=== PATIENT | male | born 1970 | race Hispanic/Latino ===

== ENCOUNTER 2016-09-28 14:54 | Emergency (ER) | payer OTHER ==
[~2016-09-28] VITALS: Ht 180.3 cm; Wt 124.7 kg
[~2016-09-28 14:54] MED LIST: DENTA 5000 PLUS1.1% TOP; FLEXERIL10 MG PO; MOBIC15 MG PO; RANITIDINE HCL300 MG PO
[2016-09-28 15:27] VITALS: BP 124/75
[2016-09-28] MEDS ORDERED: KEFLEX250 M1 PO (17:58)
[2016-09-28] MEDS ORDERED: BACTRIM 400-801 EACH PO (17:58)
--- NOTE | 2016-09-28 17:58 | ED SKIN/ALLERGY COMPLAINT ---
History of Present Illness General Chief Complaint: Skin Rash/ Abcess Stated Complaint: ?ABSCESS ON UPPER RT LEG Source: patient Exam Limitations: no limitations Vital Signs & Intake/Output Vital Signs & Intake/Output Vital Signs Date Time Temp Pulse Resp B/P Pulse O2 O2 Flow FiO2 Ox Delivery Rate 09/28 1527 97.2 76 18 124/75 97 Room Air Room Air Allergies Coded Allergies: NO KNOWN ALLERGIES (09/06/12) Reconcile Medications Cephalexin (Keflex) 250 MG CAPSULE 1 CAP PO 4 TIMES/DAY CELLULITIS CYCLOBENZAPRINE HCL (Flexeril) 10 MG TAB 1 TAB PO TID PRN PAIN Meloxicam (Mobic) 15 MG TAB 1 TAB PO DAILY PRN PAIN Ranitidine Hydrochloride (Ranitidine HCl) 300 MG SGL 1 SGL PO BID GI ( Reported) Sodium Fluoride (Denta 5000 Plus) 1.1% CRE 1 SARAI TOP BID DENTAL (Reported) Sulfamethoxazole/Trimethoprim (Bactrim 400-80 MG Tablet) 400 MG-80 MG TABLET 1 TAB PO BID CELLULITIS Triage Note: TRIAGE: 46 Y/O MALE PRESENTS FOR INGROWN HAIR TO RIGHT GROIN, RIGHT UPPER THIGH. REPORTS ATTEMPTED TO [place] ARE[facility] AT HOME. AFEBRILE IN TRIAGE. Triage Nurses Notes Reviewed? yes Onset: Gradual Duration: constant Timing: recent history Severity: moderate Severity Numbers: 5 HPI: Patient is a 46-year-old male who presents to emergency room with concerns of right upper leg redness and tender mass in which patient states that he tried to squeeze the region and he noticed minimal purulent discharge. Patient denies any fever chills denies any active discharge. Denies any mechanism injury (HARDIK ARREAGA) Past History Travel History Traveled to [place] past 21 day No Medical History Any Pertinent Medical History? see below for history Neurological: NONE EENT: NONE Cardiovascular: PALPITATIONS Respiratory: NONE Gastrointestinal: GERD, irritable bowel syndrome Hepatic: NONE Renal: NONE Musculoskeletal: NONE Psychiatric: NONE Endocrine: NONE Blood Disorders: NONE Cancer(s): NONE Tetanus Vaccine: Surgical History Surgical History: non-contributory Psychosocial History What is your primary language Macanese Tobacco Use: Never used ETOH Use: denies use Illicit Drug Use: denies illicit drug use Family History Hx Contributory? No (HARDIK ARREAGA) Review of Systems Review of Systems Constitutional: Reports: no symptoms. EENTM: Reports: no symptoms. Respiratory: Reports: no symptoms. Cardiovascular: Reports: no symptoms. GI: Reports: no symptoms. Genitourinary: Reports: no symptoms. Musculoskeletal: Reports: no symptoms. Skin: Reports: see HPI, erythema. Neurological/Psychological: Reports: no symptoms. Hematologic/Endocrine: Reports: no symptoms. Immunologic/Allergic: Reports: no symptoms. All Other Systems: Reviewed and Negative (HARDIK ARREAGA) Physical Exam Physical Exam General Appearance: no apparent distress, alert, anxious Skin: intact Skin Problem Location: lower extremities Comments: Well-developed well-nourished person in no acute distress HEENT: Normal EENT exam, extraocular motion intact, no nystagmus. Pupils equally round and reactive to light and accommodation. Nose is atraumatic. External auditory canal and Tympanic membranes clear. Pharynx normal. No swelling or edema. Neck: Supple, no lymphadenopathy, normal range of motion without pain or tenderness Back: Nontender, no CVA tenderness. Cardiovascular: Regular rate and rhythms no murmurs rubs or gallops, normal JVP Respiratory: Chest nontender. No respiratory distress.breath sounds clear to auscultation bilaterally Abdomen: Soft, nontender nondistended, no appreciable organomegaly. Normal bowel sounds. No ascites Extremity: No edema, no calf tenderness to palpation, normal and equal pulses. Neuro: Alert oriented x3, motor sensory normal, Psych: Mood and affect is normal, memory and judgment is normal. Diagram Body: 1) Inguinal region-noted 2 cm tender induration with no active bleeding no active discharge and surrounding 5 cm in diameter erythema and warmth (HARDIK ARREAGA) Progress Differential Diagnosis: abscess/cellulitis, allergic reaction, anaphylaxis, drug reaction, lyme disease, meningitis/sepsis Plan of Care: Orders Procedure Date/time Status EXTREMETIES CULTURE 09/28 1758 Active Microbiology 09/28 1800 EXTREMITIE: Culture & Sensitivity - RECD 09/28 1800 EXTREMITIE: Gram Stain - RECD Patient tolerated incision and drainage well patient will be treated for concern for cellulitis and abscess. Patient was strongly advised to return to emergency room in 2 days and he will comply patient was given extra bandages if bandages fall off (HARDIK ARREAGA) Departure Departure Disposition: HOME OR SELF CARE Condition: Stable Clinical Impression Primary Impression: Cellulitis of leg, right Secondary Impressions: Abscess of leg, right Referrals: PATIENT HAS NO PRIMARY CARE DR (PCP/Family) Referred to [facility] as new patient No Additional Instructions: DISCUSSED BEGIN THE PRESCRIPTION OF BACTRIM AND KEFLEX FOR THE FULL COURSE, THIS PRESCRIPTION IS WAITING AT [facility]. APPLY WARM COMPRESS TO THE AREA RETURN TO THE ER IN TWO DAYS FOR A WOUND RECHECK BEGIN OVER THE COUNTER IBUPROFEN IF NEEDED FOR PAIN DIRECTED APPLY THE BANDAGES GIVEN TO YOU IN THE ER IF THEY FALL OFF. IF SYMPTOMS WORSEN, OR YOU DEVELOP A NEW CONCERNING SYMPTOM, RETURN TO THE ER. Departure Forms: Customer Survey General Discharge Information Prescriptions: Current Visit Scripts Sulfamethoxazole/Trimethoprim (Bactrim 400-80 MG Tablet) 1 TAB PO BID #20 TAB Cephalexin (Keflex) 1 CAP PO 4 TIMES/DAY #40 CAP (HARDIK ARREAGA) PA/PAINT STRIPPER Co-Sign Statement Statement: ED Attending supervision documentation- [] I saw and evaluated the patient. I have also reviewed all the pertinent lab results and diagnostic results. I agree with the findings and the plan of care as documented in the PA's/PAINT STRIPPER's documentation. [X] I have reviewed the ED Record and agree with the PA's/PAINT STRIPPER's documentation. [] Additions or exceptions (if any) to the PAs/PAINT STRIPPER's note and plan are summarized below: [] (ELBA BRITT,JOSE) Procedures Incision and Drainage Site: RIGHT UPPER LEG Blade Size: 15 I & D Procedure: Yes: betadine prep, sterile drapes applied, sterile dressing applied, wick placed. Progress: Using sterile technique initially of Betadine and 5 mL of 1% lidocaine for local anesthesia I made a 1 cm incision to the fluctuant site was minimal purulent discharge was excised wick was placed gauze and Tegaderm were applied. Culture was sent and is pending (HARDIK ARREAGA)
== END 2016-09-28 18:07 ==
LOC: ERH 14:54
DX: L02.415 Cutaneous abscess of right lower limb (principal); L03.115 Cellulitis of right lower limb
CPT/HCPCS: 87184; 87070; 87147

== ENCOUNTER 2016-09-30 17:04 | Emergency (ER) | payer OTHER ==
[~2016-09-30] VITALS: Ht 180.3 cm; Wt 122.5 kg
[~2016-09-30 17:04] MED LIST changes: +BACTRIM 400-801 EACH PO; +KEFLEX250 M1 PO
[2016-09-30 17:07] VITALS: BP 135/87
--- NOTE | 2016-09-30 18:29 | ED ANIMAL BITE/WOUND CHECK ---
History of Present Illness General Chief Complaint: General Adult Stated Complaint: PACKING REMOVAL Source: patient, old records Exam Limitations: no limitations Vital Signs & Intake/Output Vital Signs & Intake/Output Vital Signs Date Time Temp Pulse Resp B/P Pulse O2 O2 Flow FiO2 Ox Delivery Rate 09/30 1707 99.4 86 18 135/87 97 Room Air Allergies Coded Allergies: NO KNOWN ALLERGIES (09/06/12) Reconcile Medications Cephalexin (Keflex) 250 MG CAPSULE 1 CAP PO 4 TIMES/DAY CELLULITIS Doxycycline Hyclate (Vibramycin) 100 MG CAPSULE 1 CAP PO BID cellulitis Sulfamethoxazole/Trimethoprim (Bactrim 400-80 MG Tablet) 400 MG-80 MG TABLET 1 TAB PO BID CELLULITIS Triage Note: HERE FOR PACKING REMOVAL R GROIN Triage Nurses Notes Reviewed? yes HPI: patient is a 46-year-old male presents for recheck of a right thigh abscess. Abscess was incised and drained 2 days ago. Patient was placed on Keflex and Bactrim 2 days ago, reports he stopped taking the medication yesterday morning due to it causing worsening of his acid reflux symptoms. Patient reports pain is minimal currently. Denies fevers. (CHAPIN CHANG) Past History Travel History Traveled to [place] past 21 day No Medical History Any Pertinent Medical History? see below for history Neurological: NONE EENT: NONE Cardiovascular: PALPITATIONS Respiratory: NONE Gastrointestinal: GERD, irritable bowel syndrome Hepatic: NONE Renal: NONE Musculoskeletal: NONE Psychiatric: NONE Endocrine: NONE Blood Disorders: NONE Cancer(s): NONE Tetanus Vaccine: Surgical History Surgical History: non-contributory Psychosocial History What is your primary language [place] Tobacco Use: Never used ETOH Use: denies use Illicit Drug Use: denies illicit drug use Family History Hx Contributory? No (CHAPIN CHANG) Review of Systems Review of Systems Constitutional: Denies: chills, fever. EENTM: Reports: no symptoms. Respiratory: Reports: no symptoms. Cardiovascular: Denies: chest pain. GI: Denies: abdominal pain, nausea, vomiting. Skin: Reports: see HPI. Neurological/Psychological: Denies: headache, numbness. Hematologic/Endocrine: Denies: bruising, bleeding. Immunologic/Allergic: Denies: splenectomy. (CHAPIN CHANG) Physical Exam Physical Exam General Appearance: well developed/nourished, alert, awake Head: atraumatic, normal appearance Eyes: Bilateral: normal appearance, PERRL, EOMI. Ears, Nose, Throat: normal pharynx, normal ENT inspection, hearing grossly normal Neck: normal inspection, supple, full range of motion Respiratory: no respiratory distress Back: normal inspection, normal range of motion Extremities: right medial proximal thigh 1.5 cm incision with 3 cm of surrounding induration. approximatly 8-10 cm of surrounding erythema, 3-4 cm of warmth surrounding the incision site. No active drainage. Neurologic/Psych: no motor/sensory deficits, awake, alert, oriented x 3, normal gait, normal mood/affect Skin: see extremities exam. (CHAPIN CHANG) Progress Differential Diagnosis: abscess, cellulitis Plan of Care: Patient afebrile, nontoxic appearing. Packing removed. The area does not appear to require further incision. Patient denies that the redness has been spreading over the past day. Discussed the results of the culture. Discussed importance of antibiotic adherence as there is a significant amount of surrounding cellulitis. It does not appear that patient has failed antibiotic therapy as he has not been adherent to the treatment regimen. Will change patient's antibiotic to doxycycline and have patient return tomorrow if any fevers or spreading of redness. A border was drawn around the inferior and lateral border of the cellulitis. (CHAPIN CHANG) Departure Departure Time of Disposition: 1843 Disposition: HOME OR SELF CARE Condition: Stable Clinical Impression Primary Impression: Abscess re-check Secondary Impressions: Cellulitis Referrals: PATIENT HAS NO PRIMARY CARE DR (PCP/Family) Additional Instructions: Warm compresses to the area for 20 minutes 4-5 times a day. Take doxycycline as directed. Return to the emergency department immediately if redness spreading beyond the border drawn, temperature greater than 100.3 or worsening of symptoms. Departure Forms: Customer Survey General Discharge Information Prescriptions: Current Visit Scripts Doxycycline Hyclate (Vibramycin) 1 CAP PO BID #14 CAP (CHAPIN CHANG) PA/CAGE MANAGER Co-Sign Statement Statement: ED Attending supervision documentation- [] I saw and evaluated the patient. I have also reviewed all the pertinent lab results and diagnostic results. I agree with the findings and the plan of care as documented in the PA's/CAGE MANAGER's documentation. x I have reviewed the ED Record and agree with the PA's/CAGE MANAGER's documentation. [] Additions or exceptions (if any) to the PAs/CAGE MANAGER's note and plan are summarized below: [] (BOB BRITT,KENDALL)
[2016-09-30] MEDS ORDERED: VIBRAMYCIN100 MG PO (18:45)
== END 2016-09-30 18:50 ==
LOC: ERH 17:04
DX: L03.115 Cellulitis of right lower limb (principal)

== ENCOUNTER 2016-10-28 17:43 | Emergency (ER) | payer OTHER ==
[~2016-10-28] VITALS: Ht 180.3 cm; Wt 122.5 kg
[~2016-10-28 17:43] MED LIST changes: +VIBRAMYCIN100 MG PO
[2016-10-28 17:45] VITALS: BP 117/80
--- NOTE | 2016-10-28 18:57 | ED SKIN/ALLERGY COMPLAINT ---
History of Present Illness General Chief Complaint: Skin Rash/ Abcess Stated Complaint: ? SKIN INFECTION (INNER THIGH RT LEG) Source: patient Exam Limitations: no limitations Vital Signs & Intake/Output Vital Signs & Intake/Output Vital Signs Date Time Temp Pulse Resp B/P Pulse O2 O2 Flow FiO2 Ox Delivery Rate 10/28 1903 Room Air 10/28 1745 98.3 91 20 117/80 98 Room Air Allergies Coded Allergies: NO KNOWN ALLERGIES (09/06/12) Reconcile Medications Cephalexin (Keflex) 250 MG CAPSULE 1 CAP PO 4 TIMES/DAY CELLULITIS Doxycycline Hyclate (Vibramycin) 100 MG CAPSULE 1 CAP PO BID cellulitis Sulfamethoxazole/Trimethoprim (Bactrim Ds Tablet) 800 MG-160 MG TABLET 1 TAB PO BID rash Sulfamethoxazole/Trimethoprim (Bactrim 400-80 MG Tablet) 400 MG-80 MG TABLET 1 TAB PO BID CELLULITIS Triamcinolone Acetonide 0.5 % CREAM..G. 1 SARAI TOP BID rash apply to affected area(s) Triage Note: PT TO ED C/O ? RASH TO RIGHT UPPER INNER THIGH. WAS SEEN HERE, HAD I&D TO [facility]. SENT HOME WITH PO ABX. PT STATES THE AREA IS DRY, PEELING AND RED. ALSO C/O ITCHINESS TO SITE. AFEBRILE. PT IS DONE WITH THE ABX. Triage Nurses Notes Reviewed? yes Onset: Abrupt Duration: day(s):, constant Timing: recent history Severity: mild, moderate Location: extremities No Modifying Factors: none HPI: 46-year-old male comes into emergency room for further evaluation of rash to right inner thigh has been going on for the past few days. Patient reports that he had an abscess there a few weeks ago that was drained and was on oral antibiotics. Patient reports that those symptoms got better. Patient has been bandaging the area. Patient reports that now he has just itchiness. Denies any fever chills vomiting. Denies any discharge out of the rash. Denies any other associated symptoms. (JOSSE GILBERT) Past History Travel History Traveled to [place] past 21 day No Medical History Any Pertinent Medical History? see below for history Neurological: NONE EENT: NONE Cardiovascular: PALPITATIONS Respiratory: NONE Gastrointestinal: GERD, irritable bowel syndrome Hepatic: NONE Renal: NONE Musculoskeletal: NONE Psychiatric: NONE Endocrine: NONE Blood Disorders: NONE Cancer(s): NONE Tetanus Vaccine: Surgical History Surgical History: non-contributory Psychosocial History What is your primary language Danish Tobacco Use: Never used ETOH Use: denies use Illicit Drug Use: denies illicit drug use Family History Hx Contributory? No (JOSSE GILBERT) Review of Systems Review of Systems Constitutional: Reports: no symptoms. EENTM: Reports: no symptoms. Respiratory: Reports: no symptoms. Cardiovascular: Reports: no symptoms. GI: Reports: no symptoms. Genitourinary: Reports: no symptoms. Musculoskeletal: Reports: no symptoms. Skin: Reports: see HPI. Neurological/Psychological: Reports: no symptoms. Hematologic/Endocrine: Reports: no symptoms. Immunologic/Allergic: Reports: no symptoms. All Other Systems: Reviewed and Negative (JOSSE GILBERT) Physical Exam Physical Exam General Appearance: well developed/nourished, mild distress Head: atraumatic Eyes: Bilateral: normal appearance. Ears, Nose, Throat: normal ENT inspection, hearing grossly normal Neck: normal inspection Respiratory: no respiratory distress Back: normal inspection Extremities: normal inspection, normal range of motion, no edema Neurologic/Psych: awake, alert, oriented x 3, normal mood/affect Skin: intact, rash Skin Problem Location: lower extremities Skin Problem Character: mild erythematous patch, no warmth, no discharge, no abscess appreciated, Lymphatic: no anterior cervical dieudonne (JOSSE GILBERT) Progress Differential Diagnosis: abscess/cellulitis, allergic reaction, anaphylaxis, contact dermatitis, drug reaction, shingles, urticaria Plan of Care: 10/28/2016 7:06:24 PM Patient clinically looks well. Patient is nontoxic-appearing. Rash is more consistent with allergic reaction/contact dermatitis than cellulitis however due to recent infection over area patient started on Bactrim as well as using triamcinolone cream. Benadryl for itching. Clinically looks well. There is no evidence of abscess on exam that needs to be re-drained. I feel that the rash is secondary to the dressing that the patient has been placing over the area. (JOSSE GILBERT) Departure Departure Disposition: HOME OR SELF CARE Condition: Stable Clinical Impression Primary Impression: Rash and nonspecific skin eruption Referrals: PATIENT HAS NO PRIMARY CARE DR (PCP/Family) Additional Instructions: Take Bactrim and triamcinolone cream as prescribed. Have recheck in 3 days by primary care doctor. Return to emergency room immediately if any other concerns worsening symptoms. Please go over all results of today's visit with your primary care doctor. Contact your primary care doctor to let them know you were here in the emergency room. There may be nonspecific findings which may not be related to your visit today here in the emergency room but may require further evaluation and chronic monitoring by your primary care doctor. If you had a laceration today the chance of foreign body always remains. You should follow-up with your primary care doctor for recheck in 3-5 days for a wound check. If you had an x-ray done there is a chance that a fracture could have been missed on initial read and you should follow-up with your primary care doctor for repeat x-rays if symptoms persist. If your blood pressure was elevated here in the emergency room please have rechecked by her primary care doctor within the next 48 hours by your primary care doctor. If you were prescribed a narcotic here in the emergency room or any type of controlled substances you're not allowed to drive while taking this medication or operate any type of heavy machinery. Narcotics can make you feel lightheaded dizziness nausea and can cause constipation. You may need to supervisor opening and picking a stool softener. Thank you for choosing [facility] emergency room. Please return to the emergency room immediately if you have any other concerns worsening of symptoms. Departure Forms: Customer Survey General Discharge Information Prescriptions: Current Visit Scripts Triamcinolone Acetonide 1 SARAI TOP BID #45 GM apply to affected area(s) Sulfamethoxazole/Trimethoprim (Bactrim Ds Tablet) 1 TAB PO BID #14 TAB (JOSSE GILBERT) PA/MELT HELPER Co-Sign Statement Statement: ED Attending supervision documentation- [] I saw and evaluated the patient. I have also reviewed all the pertinent lab results and diagnostic results. I agree with the findings and the plan of care as documented in the PA's/MELT HELPER's documentation. x I have reviewed the ED Record and agree with the PA's/MELT HELPER's documentation. [] Additions or exceptions (if any) to the PAs/MELT HELPER's note and plan are summarized below: [] (BOB BRITT,KENDALL)
[2016-10-28] MEDS ORDERED: BACTRIM DS TAB1 EACH PO (19:02)
[2016-10-28] MEDS ORDERED: TRIAMCINOLONE A15 G2 TOP (19:02)
== END 2016-10-28 19:06 ==
LOC: ERH 17:43
DX: R21 Rash and other nonspecific skin eruption (principal)